=== PATIENT | male | born 1965 | race Caucasian/White ===

== ENCOUNTER 2018-07-30 21:38 | Emergency (ER) | payer SELFPAY ==
[2018-07-30 21:51] VITALS: BP 134/82; PULSE 109; RESP 15; TEMP 98.1; O2SAT 96
--- NOTE | 2018-07-30 22:47 | ED PDOC ---
HPI: Allergic Reaction Time Seen by Provider: 07/30/18 22:44 Chief Complaint (Nursing): Allergic Reaction Chief Complaint (Provider): RASH History Per: Patient (53 Y/O MALE HERE FOR RASH NOTED GENERALIZED X 2 DAYS. STATES NOTED AFTER SHOWERS. DENIES ANY NEW FOODS. STATES HE HAS USED NEW SOAP.) Past Medical History Reviewed: Historical Data, Nursing Documentation, Vital Signs Vital Signs: Last Vital Signs Temp 98.1 F 07/30/18 21:46 Pulse 109 H 07/30/18 21:46 Resp 15 07/30/18 21:46 BP 134/82 07/30/18 21:46 Pulse Ox 96 07/30/18 21:46 - Family History Family History: States: Unknown Family Hx - Home Medications Home Medications: Ambulatory Orders Medication Instructions Recorded Albuterol HFA [Ventolin HFA 90 1 puff IH ASDIR #1 unit 09/18/15 mcg/actuation (8 g)] Benzonatate 200 mg PO TID PRN #20 capsule 09/18/15 Oseltamivir Phosphate [Tamiflu] 75 mg PO BID #10 tab 09/18/15 DiphenhydrAMINE [Benadryl] 1 - 2 tab PO Q6 PRN #24 cap 07/30/18 Famotidine [Pepcid] 20 mg PO BID #10 tab 07/30/18 predniSONE [predniSONE Tab] 3 tab PO DAILY #12 tab 07/30/18 - Allergies Allergies/Adverse Reactions: Allergies Allergy/AdvReac Type Severity Reaction Status Date / Time No Known Allergies Allergy Verified 07/30/18 21:52 Review of Systems ROS Statement: Except As Marked, All Systems Reviewed And Found Negative Physical Exam - Reviewed Nursing Documentation Reviewed: Yes Vital Signs Reviewed: Yes - Physical Exam Appears: Positive for: Well, Non-toxic, No Acute Distress Head Exam: Positive for: ATRAUMATIC, NORMAL INSPECTION, NORMOCEPHALIC Skin: Positive for: Normal Color, Warm, Rash (FADING URTICARIA NOTED ON ABDOMEN AND UPPER EXTREMITIES.) Eye Exam: Positive for: EOMI, Normal appearance, PERRL ENT: Positive for: Normal ENT Inspection Neck: Positive for: Normal, Painless ROM Cardiovascular/Chest: Positive for: Regular Rate, Rhythm Respiratory: Positive for: CNT, Normal Breath Sounds Gastrointestinal/Abdominal: Positive for: Normal Exam, Soft Back: Positive for: Normal Inspection Extremity: Positive for: Normal ROM Neurologic/Psych: Positive for: Alert, Oriented - ECG O2 Sat by Pulse Oximetry: 96 - Progress ED Course And Treament: PREDNISONE 60 MG X 1 DOSE Disposition - Clinical Impression Clinical Impression: Urticaria - Patient ED Disposition Is Patient to be Admitted: No - Disposition Referrals: [facility] [Outside] Disposition: Routine/Home Disposition Time: 22:45 Condition: FAIR Prescriptions: DiphenhydrAMINE [Benadryl] 1 - 2 tab PO Q6 PRN #24 cap PRN Reason: Rash Famotidine [Pepcid] 20 mg PO BID #10 tab predniSONE [predniSONE Tab] 3 tab PO DAILY #12 tab Instructions: Hives (DC) Forms: [facility] ED School/Work Excuse
== END 2018-07-30 23:21 | disposition home or self-care (01) ==
LOC: H.ER 21:38
DX: L50.0 Allergic urticaria (principal)

== ENCOUNTER 2018-08-25 19:51 | Emergency (ER) | payer OTHER ==
[2018-08-25 20:10] VITALS: RESP 18
[2018-08-25] MEDS ORDERED: Famotidine 40 MG/5 ML PO STA (20:34)
--- NOTE | 2018-08-25 20:34 | ED PDOC ---
HPI: Allergic Reaction Time Seen by Provider: 08/25/18 20:12 Chief Complaint (Nursing): Allergic Reaction Chief Complaint (Provider): Allergic Reaction History Per: Patient History/Exam Limitations: no limitations Onset/Duration Of Symptoms: Days (2x) Current Symptoms Are (Timing): Still Present Possible Cause: Food Associated Symptoms: Skin Rash Home/EMS Treatment: None Additional Complaint(s): 53 year old male with no past medical history presents to the ED for evaluation of an allergic reaction. Patient states that yesterday he made a home-cooked dinner of rice and beef, and 1.5x hours after he ate it, he felt a rash to his back, and saw in the mirror that he developed a rash throughout his body. Patient states that the rash is itchy and not painful. Patient was seen in the ED on 07/30/2018 for the same complaint and never followed up because medication improved symptoms. Otherwise patient reports (-) throat swelling, (-) tongue / lip swelling, (-) dyspnea, (-) cough, (-) wheezing, (-) abdominal pain, (-) nausea (-) vomiting. PMD: None Past Medical History Reviewed: Historical Data, Nursing Documentation, Vital Signs Vital Signs: Last Vital Signs Temp 98.5 F 08/25/18 20:03 Pulse 98 H 08/25/18 20:03 Resp 18 08/25/18 20:03 BP 135/81 08/25/18 20:03 Pulse Ox 98 08/25/18 20:03 - Medical History PMH: No Chronic Diseases - Surgical History Surgical History: No Surg Hx - Family History Family History: States: No Known Family Hx - Social History Current smoker - smoking cessation education provided: No Alcohol: Social Drugs: Denies - Home Medications Home Medications: Ambulatory Orders Medication Instructions Recorded Albuterol HFA [Ventolin HFA 90 1 puff IH ASDIR #1 unit 09/18/15 mcg/actuation (8 g)] Oseltamivir Phosphate [Tamiflu] 75 mg PO BID #10 tab 09/18/15 RX: Benzonatate 200 mg PO TID PRN #20 capsule 09/18/15 DiphenhydrAMINE [Benadryl] 1 - 2 tab PO Q6 PRN #24 cap 07/30/18 Famotidine [Pepcid] 20 mg PO BID #10 tab 07/30/18 RX: predniSONE [predniSONE Tab] 3 tab PO DAILY #12 tab 07/30/18 DiphenhydrAMINE [Benadryl] 50 mg PO Q6 PRN #20 cap 08/25/18 Famotidine [Pepcid] 40 mg PO DAILY #10 tab 08/25/18 RX: predniSONE [predniSONE Tab] 60 mg PO DAILY #12 tab 08/25/18 - Allergies Allergies/Adverse Reactions: Allergies Allergy/AdvReac Type Severity Reaction Status Date / Time No Known Allergies Allergy Verified 07/30/18 21:52 Review of Systems ROS Statement: Except As Marked, All Systems Reviewed And Found Negative ENT: Negative for: Other (throat or lip swelling) Respiratory: Negative for: Cough, Shortness of Breath, Wheezing Gastrointestinal: Negative for: Nausea, Vomiting, Abdominal Pain Skin: Positive for: Rash (itchy) Physical Exam - Reviewed Nursing Documentation Reviewed: Yes Vital Signs Reviewed: Yes - Physical Exam Comments: GENERAL APPEARANCE: Patient is awake, alert, oriented x 3, in no acute distress. Resting comfortably. SKIN: (+) scattered hives. Otherwise (-) excoriations, (-) drainage, (-) crusting of lesions HENT: (-) facial swelling. (-) conjunctival injection, (-) chemosis. Oropharynx: clear (-) tongue or lip swelling, (-) tonsillar exudates, (-) erythema. Airway: patent (-) stridor, (-) hoarseness. Mucous membranes moist. Nares: Patent (-) rhinorrhea. NECK: Supple, FROM (-) lymphadenopathy, (-) tenderness. CARDIOVASCULAR: Normal rate and rhythm CHEST: (-) rales, (-) wheezing, (-) dyspnea, (-) stridor. Breath sounds equal bilaterally. Respirations even and nonlabored. ABDOMEN: Soft. (-) tenderness, (-) distention NEURO: Mental status as above. Gait: steady. Speech: clear (-) facial asymmetry (-) aphasia - ECG O2 Sat by Pulse Oximetry: 98 (RA) Pulse Ox Interpretation: Normal Disposition - Clinical Impression Clinical Impression: Allergic reaction, Urticaria - Patient ED Disposition Is Patient to be Admitted: No Counseled Patient/Family Regarding: Studies Performed, Diagnosis, Need For Followup, Rx Given - Disposition Referrals: [facility] [Outside] Disposition: Routine/Home Disposition Time: 21:10 Condition: STABLE Additional Instructions: La atencin mdica de emergencia que recibi hoy se dirigi a monae sntomas agudos. Si le recetaron algn medicamento, llnelo y tmelo segn las indicaciones. Los sntomas pueden tardar varios hare en resolverse. Regrese al Departamento de Emergencias si monae sntomas empeoran, no mejoran o si tiene otros problemas. Comunquese con baum mdico dentro de 2 hare para carola nueva evaluacin y maximino un seguimiento o llame a catherine de los mdicos / clnicas a los que dumont sido referido y que figuran en el formulario de Informacin de visita al paciente que se incluye en baum paquete de rose. Lleve todos los documentos que le entregaron al momento del rose junto con todos los medicamentos que est tomando para baum visita de seguimiento. Nuestro tratamiento no puede reemplazar la atencin mdica continua por parte de un proveedor de atencin primaria (PCP) fuera del departamento de emergencias. Prescriptions: DiphenhydrAMINE [Benadryl] 50 mg PO Q6 PRN #20 cap PRN Reason: Itching / Pruritus Famotidine [Pepcid] 40 mg PO DAILY #10 tab RX: predniSONE [predniSONE Tab] 60 mg PO DAILY #12 tab Instructions: Hives, Allergy Skin Testing Forms: [employer] (Latvian) Print Language: SERBIAN - POA Present On Arrival: None Medical Decision Making Medical Decision Makin:15 Clinical impression: 53 year old male with an allergic reaction Initial plan: * benadryl 50 mg PO (not driving home) * pepcid 40 mg PO * prednisone 60 mg PO * reevaluation 2109 On re-evaluation, patient reports improvement of symptoms. On exam, patient remains AAOx3, in no acute distress. Lungs clear to auscultation, cardiac RRR. Vitals stable. Lab/Diagnostic results d/w the patient in great detail. Diagnosis of allergic reaction, urticaria d/w the patient. Based on history, exam and diagnostic results, plan will be for outpatient follow up with clinic. Patient instructed to follow-up with pmd / referral provided / the clinic in 1- 2 days without fail. Advised to take medication as prescribed. Return to the emergency room at any time for any new or worsening symptoms. Patient states he fully agrees with and understands discharge instructions. States that he agrees with the plan and disposition. Verbalized and repeated discharge instructions and plan. I have given the patient opportunity to ask any additional questions. Scribe Attestation: Documented bySue Garrido, acting as a scribe for Sue Mendoza Provider Scribe Attestation: All medical record entries made by the Scribe were at my direction and personally dictated by me. I have reviewed the chart and agree that the record accurately reflects my personal performance of the history, physical exam, medical decision making, and the department course for this patient. I have also personally directed, reviewed, and agree with the discharge instructions and disposition.
[2018-08-25 21:36] VITALS: BP 122/70; PULSE 78; TEMP 98
[2018-08-25 23:43] VITALS: O2SAT 98
== END 2018-08-25 21:35 | disposition home or self-care (01) ==
LOC: H.ER 19:51
DX: L50.0 Allergic urticaria (principal)